=== PATIENT | female | born 1995 | race Caucasian/White ===

== ENCOUNTER 2017-10-23 10:28 | Day surgery (SDC) | payer OTHER ==
[~2017-10-23 10:28] MED LIST: ACETAMINOPHEN 1000 MG/100 ML IVPB; CEFAZOLIN 1 GM INJ; EPHEDrine SULFATE 50 MG/5 ML SYG
[2017-10-23] MEDS ORDERED: morphine SULFATE/PF (10 MG/10 ML) INJ (11:55)
[2017-10-23] MEDS ORDERED: ROPIVACAINE 0.5 % 30 ML VIAL ×2 (11:55→13:05)
[2017-10-23] MEDS ORDERED: ROPIVACAINE 0.2% 20 ML VIAL (13:05)
[2017-10-23] MEDS ORDERED: ROCURONIUM 50 MG INJ (13:05)
[2017-10-23] MEDS ORDERED: MIDAZOLAM 1 MG/ML 2 ML INJ (13:05)
[2017-10-23] MEDS ORDERED: PROPOFOL 20 ML (13:05)
[2017-10-23] MEDS: POLYMYXIN/BACITRACIN 1L IRRIG (14:48)
[2017-10-23] MEDS ORDERED: METOCLOPRAMIDE 10 MG INJ (15:00)
[2017-10-23] MEDS ORDERED: ONDANSETRON 4 MG INJ (15:00)
[2017-10-23] MEDS ORDERED: KETOROLAC 30 MG INJ (15:00)
[2017-10-23] MEDS ORDERED: DEXAMETHASONE 4 MG/ML 1 ML INJ (15:00)
[2017-10-23] MEDS ORDERED: DIPHENHYDRAMINE 50 MG INJ IV (15:30)
[2017-10-23] MEDS ORDERED: LABETALOL HCL 20MG INJ IV (15:30)
[2017-10-23] MEDS ORDERED: HYDROmorphONE (0.2 MG/ML) 10ML SYG IV (15:30)
[2017-10-23] MEDS ORDERED: EPHEDrine SULFATE 50 MG/5 ML SYG IV (15:30)
[2017-10-23] MEDS ORDERED: METOCLOPRAMIDE 10 MG INJ IV (15:30)
[2017-10-23] MEDS ORDERED: MEPERIDINE 25 MG INJ IV (15:30)
[2017-10-23] MEDS ORDERED: OXYCODONE/ACETAMINOPHEN (5/325) TAB PO ×2 (15:30)
[2017-10-23] MEDS ORDERED: FENTAnyl 50 MCG/ML VIAL IV ×3 (15:30)
[2017-10-23] MEDS: LIDOCAINE 1%/EPI 30 ML INJ (15:40)
[2017-10-23] MEDS: HYDROmorphONE (0.2 MG/ML) 10ML SYG IV ×3 (15:48→16:03)
[2017-10-23] MEDS: ONDANSETRON 4 MG INJ IV (17:23)
== END 2017-10-23 17:30 | disposition home or self-care (01) ==
LOC: SDS 10:28
DX: S52.502A Unspecified fracture of the lower end of left radius, initial encounter for closed fracture (principal); W19.XXXA Unspecified fall, initial encounter
CPT/HCPCS: 25607; 73110-LT; 84703